=== PATIENT | male | born 1955 | race Caucasian/White ===

== ENCOUNTER 2018-08-12 10:58 | Emergency (ER) | payer OTHER ==
[~2018-08-12] VITALS: Ht 177.8 cm; Wt 87.3 kg
[2018-08-12 11:05] VITALS: BP 136/84; TEMP 98.7
[2018-08-12] MEDS ORDERED: GLUCOPHAGE500 MG/TAB PO (11:43)
[2018-08-12] MEDS ORDERED: ADVIL200 MG PO (11:43)
[2018-08-12] MEDS ORDERED: PRINIVIL20 MG PO (11:44)
[2018-08-12] MEDS ORDERED: LIPITOR 10MG10 MG PO (11:44)
[2018-08-12] MEDS ORDERED: MAGNESIUM200 MG PO (11:44)
[2018-08-12] MEDS ORDERED: XARELTO20 MG PO (11:44)
[2018-08-12] MEDS ORDERED: TRADJENTA5 MG PO (11:45)
[2018-08-12] MEDS ORDERED: PRIL40 PO (11:45)
[2018-08-12] MEDS ORDERED: CENTRUM SILVER1 TA2 PO (11:45)
[2018-08-12] MEDS ORDERED: NORCO 325 MG-51 TAB PO (11:56)
[2018-08-12] MEDS ORDERED: NAPROSYN 2250 MG/TAB PO (11:56)
[2018-08-12 12:12] VITALS: PULSE 86
== END 2018-08-12 12:14 | disposition home or self-care (01) ==
LOC: COL.ER 10:58
DX: M54.31 Sciatica, right side (principal); E11.9 Type 2 diabetes mellitus without complications; Z79.84 Long term (current) use of oral hypoglycemic drugs
CPT/HCPCS: J1885